=== PATIENT | male | born 1975 | race Caucasian/White ===

== ENCOUNTER 2019-01-08 10:38 | Emergency (ER) | payer MEDICAID ==
[~2019-01-08] VITALS: Ht 172.7 cm; Wt 108.9 kg
--- NOTE | 2019-01-08 10:58 | NUR ---
Patient ambulated to bed 3. RN evaluating patient at bedside.
[2019-01-08 10:59] VITALS: BP 115/45
--- NOTE | 2019-01-08 11:05 | NUR ---
c/o right sided headache x 3 days, and is now having n/v & dizziness, denies injury/trauma ambulatory with steady gait, full clear speech, equal labor relations officer/pushes, no drift noted. bed in low position, pt resting with lights dimmed for comfort.
--- NOTE | 2019-01-08 11:19 | NUR ---
Dr. Tao evaluating patient at bedside.
[2019-01-08] MEDS ORDERED: PROCHLORPERAZINE 10 MG/2 ML VIAL IM ONE (11:25)
[2019-01-08] MEDS ORDERED: diphenhydrAMINE 50 MG/ML VIAL IM ONE (11:25)
--- NOTE | 2019-01-08 12:16 | NUR ---
pt asleep in bed
--- NOTE | 2019-01-08 12:34 | NUR ---
Dr. Tao re-evaluating patient at bedside.
[2019-01-08 12:59] VITALS: BP 112/44
--- NOTE | 2019-01-08 12:59 | NUR ---
Patient discharged with v/s stable. Written and verbal after care instructions given and explained. Patient alert, oriented and verbalized understanding of instructions. Ambulatory with steady gait. All questions addressed prior to discharge. ID band removed. Patient advised to follow up with PMD. Rx of ibuprofen, zofran, tramadol given. Patient educated on indication of medication including possible reaction and side effects. Opportunity to ask questions provided and answered.
== END 2019-01-08 12:59 | disposition home or self-care (01) ==
LOC: MED 10:38
DX: G43.909 Migraine, unspecified, not intractable, without status migrainosus (principal); E11.9 Type 2 diabetes mellitus without complications
CPT/HCPCS: 82948; 96372; 99283; J0780; J1200